=== PATIENT | male | born 1960 | race Hispanic/Latino ===

== ENCOUNTER 2017-11-28 08:44 | Day surgery (SDC) | payer BC ==
[2017-11-26 08:30] VITALS: BMI 25.1
[2017-11-28 09:19] LABS: BASO # 0.01 K/mm3 (0.0-2.0); BASO % 0.2 % (0.0-3.0); EOS # 0.1 (0.0-0.7); EOS % 2.3 % (1.5-5.0); GRAN # 3.69 (1.4-6.5); GRAN % 60.2 % (50.0-68.0); HEMOGLOBIN 16.4 g/dL (14.0-18.0); LYMPH # 1.9 (1.2-3.4); LYMPH % 30.4 % (22.0-35.0); MEAN CELL VOLUME 89.9 fl (80.0-105.0); MEAN CORPUSCULAR HGB CONC 33.4 g/dl (31.0-37.0); MEAN PLATELET VOLUME 10.5 fl (7.0-11.0); MONO # 0.4 (0.1-0.6); MONO % 6.9 % (1.0-6.0); RBC 5.46 10^6/uL (3.5-6.1); RED CELL DISTRIBUTION WIDTH 13.4 % (11.5-14.5); WHITE BLOOD COUNT 6.1 10^3/ul (4.5-11.0)
[2017-11-28 09:26] LABS: BLOOD UREA NITROGEN 16 mg/dL (7-21); CALCIUM 10.3 mg/dL (8.4-10.5); GFR AFRICAN-AMERICAN > 60; GFR NON-AFRICAN AMERICAN > 60
[2017-11-28 09:35] LABS: INR 1.05 (0.93-1.08); PARTIAL THROMBOPLASTIN TIME 30.3 Seconds (25.1-36.5); PROTHROMBIN TIME 12.1 SECONDS (9.4-12.5)
[2017-11-28] MEDS ORDERED: Iodixanol 320 MG/ML 200 ML BOTTLE IV ONE (10:02)
[2017-11-28] MEDS ORDERED: Midazolam 2 MG/2 ML VIAL ONE ×3 (10:02→11:10)
[2017-11-28] MEDS ORDERED: Nitroglycerin 50mg in D5W 50 MG/250 ML BOTTLE IV ONE (10:02)
[2017-11-28] MEDS ORDERED: Iodixanol 320 MG/ML 100 ML BOTTLE IV ONE (10:02)
[2017-11-28] MEDS ORDERED: Lidocaine 2% Inj (20ml) ONE (10:03)
[2017-11-28] MEDS ORDERED: HEPARIN SODIUM/NS 2,000 ML IV ONE (10:03)
[2017-11-28] MEDS ORDERED: Sodium Chloride 0.45% 1,000 ML IV SCH (12:00)
[2017-11-28] MEDS ORDERED: Oxycodone/Acetaminophen 5/325 mg Tab PO PRN (12:00)
[2017-11-28 13:03] VITALS: RESP 20; TEMP 98.5
[2017-11-28 15:14] VITALS: BP 136/87; PULSE 72; O2SAT 100
--- NOTE | 2017-11-28 18:23 | VASCULAR ---
PROCEDURE: 1. Abdominal aortogram and bilateral lower extremity runoff with left selective views 2. Focal left popliteal artery silver Hawk atherectomy and drug-eluting balloon angioplasty HISTORY: Peripheral vascular disease. Diabetes. Severe short distance left calf claudication. Critical focal left popliteal artery stenosis PHYSICIAN(S): Edu Huizar M.D. TECHNIQUE: The relative risks and indications of the procedure were explained to the patient and consent obtained. The patient was hydrated prior to the procedure and the appropriate labs drawn. The patient was placed supine on the arteriogram table and the right groin prepped and draped in the usual sterile fashion. Conscious sedation and monitoring were provided throughout the procedure by a nurse. Via a right common femoral artery approach, a 5 [place] sheath was placed in the right groin. Through the sheath and over a guidewire, a 5 [place] flush catheter was placed in the abdominal aorta at the level of the renal arteries and a PA DSA abdominal aortogram performed. The catheter was pulled down to the aortic bifurcation and bilateral oblique DSA pelvic arteriograms performed. Overlapping bilateral lower extremity DSA arteriograms were obtained from the inguinal ligaments to the ankles. A 0.035 angled Glidewire was advanced over the bifurcation and placed in the distal left SFA. A 7 [place] 65 cm destination sheath was placed in the mid left SFA. Heparin 5000 units IV and nitroglycerin in 250 mcg aliquots were given. The critical E centric focal stenosis in the left popliteal artery just above the knee was crossed with a 0.035 angled glidewire and 5 [place]ol[place] catheter.. Exchange was made for a 0.014 support guidewire. Silver Hawk atherectomy of the centric stenosis in the left popliteal artery at the patella was performed with and LS catheter. Approximately 7 passes were performed. An improved but suboptimal result was obtained. Next the left popliteal artery above the knee was dilated with 7 mm x 6 cm drug-eluting balloon. A good angiographic result was obtained and no stent was required. The sheath was removed hemostasis obtained. The patient tolerated the procedure well FINDINGS: There are 2 left renal arteries and a single right renal artery present which are patent. The nephrograms are symmetric in appearance. The infrarenal abdominal aorta is patent and normal in appearance. There is a prominent JEREMIAH. Aortic bifurcation is patent. The common external iliac arteries are patent. The external iliac arteries are somewhat tortuous. Right lower extremity: The right common femoral artery is patent. The right profunda femoral artery is patent. The right superficial femoral artery is patent and continuous without a radiographically significant stenosis. The right popliteal artery and trifurcation are patent. The proximal tibial vessels are patent. The distal tibial arteries are not well seen due to motion Left lower extremity: Left common femoral artery is patent. The left profunda femoral artery is patent. The left superficial femoral artery is patent and continuous without a radiographically significant stenosis. There is a critical E centric stenosis of the left popliteal artery at the patella. The left trifurcation and proximal left tibial arteries are patent. The mid to distal left tibial arteries are not visualized due to motion. IMPRESSION: 1.Critical eccentric stenosis of the left popliteal artery at the patella. 2. Successful left popliteal artery silver Hawk atherectomy and drug-eluting balloon angioplasty.
== END 2017-11-28 16:20 | disposition home or self-care (01) ==
LOC: SDSVAS 08:44
PROVIDERS: ATTEND Radiology Vascular & Interventional Radiology
DX: I70.202 Unspecified atherosclerosis of native arteries of extremities, left leg (principal); E11.51 Type 2 diabetes mellitus with diabetic peripheral angiopathy without gangrene; I10 Essential (primary) hypertension
CPT/HCPCS: 36415; 37225; 75625; 75716; 80048; 85025; 85610; 85730; 99152; 99153; C1725 ×2; C1760 ×2; C1764; C1769 ×5; C1887 ×2; C1894; J1644 ×2; J2250; J2405; J3010; J7030 ×2; Q9967